=== PATIENT | female | born 1950 | race Two or more races ===

== ENCOUNTER → 2025-01-01 | Outpatient (CLI) | payer MEDICARE, MEDICAID, SELFPAY | END | disposition home or self-care (01) | LOC: SLDO 15:14 | PROVIDERS: PCP Family Medicine; Referring Provider Family Medicine; Visit Provider Family Medicine | DX: N39.0 Urinary tract infection, site not specified (principal) | CPT/HCPCS: 87086 ==

== ENCOUNTER → 2025-03-22 | Outpatient (BNVA) | payer MEDICARE, MEDICAID, SELFPAY | END | disposition home or self-care (01) | PROVIDERS: PCP Family Medicine; Referring Provider Family Medicine; Visit Provider Urology | DX: N39.0 Urinary tract infection, site not specified (principal); G89.4 Chronic pain syndrome; R10.2 Pelvic and perineal pain; I10 Essential (primary) hypertension; E03.9 Hypothyroidism, unspecified | CPT/HCPCS: 81003; 99203; G0463 ==

== ENCOUNTER → 2025-04-04 | Outpatient (CLI) | payer MEDICARE, MEDICAID, SELFPAY ==
--- NOTE | 2025-04-04 10:07 | XR_ITS ---
Examination: Abdomen AP single view Technique: AP portable supine abdomen, single view Exam date and time: April 04, 2025 1038 hours INDICATIONS: Urinary tract infections beginning 6 years ago FINDINGS: Nonobstructive bowel gas pattern. No renal or ureteral calculi Surgical clips upper right abdomen Moderate stool throughout the colon IMPRESSION: No renal or ureteral calculi
== END | disposition home or self-care (01) ==
LOC: COPL 09:38
PROVIDERS: PCP Family Medicine; Referring Provider Urology; Visit Provider Radiology Diagnostic Radiology
DX: N39.0 Urinary tract infection, site not specified (principal)
CPT/HCPCS: 74018

== ENCOUNTER → 2025-07-03 | Outpatient (BNVA) | payer MEDICARE, MEDICAID, SELFPAY | END | disposition home or self-care (01) | PROVIDERS: PCP Family Medicine; Referring Provider Family Medicine; Visit Provider Urology | DX: R35.1 Nocturia (principal); R35.0 Frequency of micturition; I10 Essential (primary) hypertension; E03.9 Hypothyroidism, unspecified | CPT/HCPCS: 81003; 99212; G0463 ==

== ENCOUNTER → 2025-09-21 | Outpatient (CLI) | payer MEDICARE, MEDICAID, SELFPAY ==
[2025-09-21 14:14] LABS: Collection Type, Urine Clean Catch
[2025-09-21 16:33] LABS: Bacteria,Urine Rare; Bilirubin,Urine Negative (Negative); Blood,Urine Negative (Negative); Clarity,Urine Clear (Clear/Hazy); Color,Urine Lt-Yellow (Lt Yel-Yel); Glucose, Urine Negative (Negative); Ketones,Urine Negative (Negative); Leukocyte Esterase,Urine Positive (Negative); Nitrite,Urine Negative (Negative); PH,Urine 6.0 (5.0-7.0); Protein,Urine Negative (Neg - Trace); RBC,Urine < 1 /hpf (0-3); Specific Gravity,Urine 1.007 (1.001-1.035); Squamous Epithelial Cell,Urine 2 /hpf (0-5); Urobilinogen,Urine Negative mg/dL (0.0-1.0); WBC,Urine 1 /hpf (0-5)
== END | disposition home or self-care (01) ==
LOC: SLDO 14:10
PROVIDERS: PCP Internal Medicine; Referring Provider Internal Medicine; Visit Provider Internal Medicine
DX: R30.0 Dysuria (principal)
CPT/HCPCS: 81001; 87077; 87086; 87186